=== PATIENT | female | born 1960 | race Caucasian/White ===

== ENCOUNTER → 2017-01-04 | Outpatient (CLI) | payer OTHER | LOC: RAD 01:23 | DX: Z12.31 Encounter for screening mammogram for malignant neoplasm of breast (principal) ==

== ENCOUNTER → 2018-08-05 | Outpatient (CLI) | payer OTHER | LOC: RAD 07-29 02:28 | DX: Z12.31 Encounter for screening mammogram for malignant neoplasm of breast (principal) ==

== ENCOUNTER 2019-01-22 05:27 | Day surgery (SDC) | payer OTHER ==
[~2019-01-22] VITALS: Ht 160 cm; Wt 86.2 kg
--- NOTE | ~2019-01-22 | O ---
[facility] [place] [address] OPERATIVE REPORT Name: LOUANN GARCIA Room #: 150-2 [facility]..#: [id number] Admission: 01/22/19 ������������������ Attend Phys: Mir Vazquez MD Discharge: ������������������ Date of : 58 Report #: [id number] THIS REPORT FOR: //name// CC: Eliane Vazquez DATE OF SERVICE: 01/22/2019 PRIMARY CARE PHYSICIAN: Eliane Dalton M.D. PREOPERATIVE DIAGNOSIS: Symptomatic cholelithiasis. POSTOPERATIVE DIAGNOSIS: Symptomatic cholelithiasis. OPERATIVE PROCEDURE DONE: Laparoscopic cholecystectomy. OPERATING SURGEON: Mir Vazquez M.D. INDICATIONS: The patient is a 58-year-old female who presented with complaints of recurrent episodes of right upper quadrant pain that she has been having. Clinical exam and an ultrasound scan that was done showed features of cholelithiasis. The patient was advised laparoscopic cholecystectomy. DESCRIPTION OF PROCEDURE: After explaining to the patient in detail and informed consent was obtained, the patient was identified in the preoperative holding area. The patient was transferred to the operating room and placed in the supine position. Sequential compressive devices were placed for DVT prophylaxis. Preoperative antibiotics were given. After induction of anesthesia, the abdomen was prepped and draped in a sterile fashion. Through a right upper quadrant 1-cm incision and using Optiview technique, the peritoneal cavity was entered and pneumoperitoneum was created. Thereafter, under direct vision, another 5-mm trocar was placed through a supraumbilical incision; another 5-mm trocar was placed in the epigastrium and one in the right lateral subcostal regions. Upon initial inspection, the gallbladder appeared to be chronically thickened, with this of likely chronic cholecystitis. Gallbladder was retracted on the peritoneal reflection of the . Neck of the gallbladder was gently dissected off. Cystic duct was identified and was isolated from the surrounding structures. Cystic artery was identified and was isolated from the surrounding structures. Cystic duct was then doubly clipped proximally and single clip applied distally and was then divided. Cystic artery also was then divided in a similar fashion. After hemostasis was achieved, sterile saline irrigation was given. The gallbladder was gently dissected off the liver bed using hook electrocautery. The gallbladder was then retrieved using an EndoCatch through the lateral most incision. This incision was then closed with 0 Vicryl using a fascial closure device and skin was closed with 4-[address] [address] OPERATIVE REPORT Name: LOUANN GARCIA Room #: 150-2 [facility]#: [id number] Admission: 01/22/19 ������������������ Attend Phys: Mir Vazquez MD Discharge: ������������������ Date of : 58 Report #: [id number] Monocryl. For all the incision, Dermabond was applied. The patient was stable at the end of the procedure. The patient was awoken from anesthesia and was transferred to the recovery room in stable condition. ESTIMATED BLOOD LOSS: Approximately 10 mL. CONDITION OF THE PATIENT: Stable. FLUIDS GIVEN: Per anesthesia notes. SPECIMEN SENT: Gallbladder. COMPLICATIONS: None. ANESTHESIA: General anesthesia. ��������������������������������������������� ���������������������������������������� By: ��������������������������������������������� 1107 [id number] Mir Vazquez MD /nt
[~2019-01-22 05:27] MED LIST: VITAMIN D1000 UNI1 PO
[2019-01-22 07:09] VITALS: BP 125/82
[2019-01-22] MEDS ORDERED: HYDROCODONE-AP1 EAC6 PO (10:54)
[2019-01-22 12:07] VITALS: BP 125/82
[2019-01-22 12:08] VITALS: BP 125/82
--- NOTE | 2019-01-24 12:06 | PATH ---
[facility] [address] [place] [address] PATHOLOGY RPT PROCEDURE Name: LOUANN DE LEON Room #: DEP [facility] M.R.#: [id number] ������������������ Admission: 01/22/19 ������������������ Date of : 58 Discharge: 01/22/19 Report #: [id number] Path Case #: [id number] [facility] Accession Number: [id number] . 01 Material submitted: . gallbladder - GALLBLADDER . 01 Clinical history: . Symptomatic cholelithiasis . 02 Diagnosis: Gallbladder, cholecystectomy: - Mild chronic cholecystitis. - Cholelithiasis. - Incidental reactive lymph node. (IUV:porcelain mixer; 01/23/2019) MBR/01/23/2019 . 02 Electronically signed: . Christy Chakraborty MD, Pathologist NPI- [id number] . 01 Gross description: . The specimen is received in formalin, labeled "Louann De Leon, gallbladder". Received is an intact gallbladder measuring 10.8 x 2.8 x 2.7 cm in greatest dimensions displaying a pink-syed serosal surface. Opening the specimen reveals a velvety, light syed, bile-stained mucosa with a gallbladder wall thickness of 0.1 cm. A single light green, nodular calculus is present, and no masses or lesions are noted grossly. Toward the proximal margin, there is a single possible lymph node present measuring 0.9 cm in maximum dimensions. Microbiology Manager sections, to include the proximal margin, are submitted in cassette A1, to include the bisected lymph node. (CAA; 01/22/2019) QAC/QAC . 02 Pathologist provided ICD-10: K80.10 . 02 CPT . 996832 Specimen Comment: A courtesy copy of this report has been sent to Specimen Comment: [phone], . Specimen Comment: Report sent to / DR NIOXN Performed at: [address], [place], [place] [id number] [place] [address] PATHOLOGY RPT PROCEDURE Name: LOUANN DE LEON Room #: DEP [facility] Cuate#: [id number] ������������������ Admission: 01/22/19 ������������������ Date of : 58 Discharge: 01/22/19 Report #: [id number] Path Case #: [id number] MD Mukul Steele MD Phone: [phone] Performed at: [address] [id number] MD Christy Chakraborty MD Phone: [phone]
== END 2019-01-22 13:05 | disposition home or self-care (01) ==
LOC: OR 05:27 → TBA 05:27 → OR 10:06
DX: K80.10 Calculus of gallbladder with chronic cholecystitis without obstruction (principal); Z98.890 Other specified postprocedural states; Z79.891 Long term (current) use of opiate analgesic
CPT/HCPCS: 50010; 50101; 50411; 50555; 50558; 51489; 52265; 52266; 54022; 54118; 55245; 56462; 56525; 56526; 62110; 62900; 70005